=== PATIENT | female | born 1990 | race Caucasian/White ===

== ENCOUNTER 2022-04-08 09:18 | Emergency (ER) | payer MEDICAID ==
[~2022-04-08] VITALS: Ht 160 cm; Wt 79.0 kg
[2022-04-08] MEDS ORDERED: MORPHINE SULFATE 4 MG/ML CPJ (NOT FOR IM USE) IV STA (09:31)
[2022-04-08 10:32] LABS: BASOPHILS % 0.5 % (0.0-2.0); EOSINOPHILS % 2.1 % (0.0-5.0); HEMATOCRIT. 36.9 % (36.0-48.0); HEMOGLOBIN. 12.9 g/dL (12.0-16.0); MEAN CORPUSCULAR HEMOGLOBIN 32.2 pg (28.0-32.0); MEAN PLATELET VOLUME 8.5 fl (7.4-10.4); NEUTROPHILS % 64.4 % (40.0-76.0); PLATELET 377 x1000/uL (130-400); RED BLOOD CELL COUNT 4.01 mill/uL (4.2-5.4); RED CELL DISTRIBUTION WIDTH 13.5 % (11.6-14.6)
[2022-04-08 10:46] LABS: CHLORIDE 105 mEq/L (98-107)
[2022-04-08 10:48] LABS: HCG SCREEN NEGATIVE
[2022-04-08] MEDS ORDERED: LIDOCAINE HCL/PF 1% 10 MG/ML 5ML VIAL INFIL ONE (11:15)
[2022-04-08] MEDS ORDERED: T3 PO (11:58)
[2022-04-08] MEDS ORDERED: IBUP-2028 PO (11:58)
[2022-04-08 13:30] VITALS: BP 121/77
== END 2022-04-08 13:45 | disposition home or self-care (01) ==
LOC: ER 09:18
DX: S02.2XXB Fracture of nasal bones, initial encounter for open fracture (principal); S52.591A Other fractures of lower end of right radius, initial encounter for closed fracture; M54.2 Cervicalgia; M54.59 Other low back pain; M79.662 Pain in left lower leg; R10.9 Unspecified abdominal pain; V49.49XA Driver injured in collision with other motor vehicles in traffic accident, initial encounter; Y93.89 Activity, other specified; Y92.488 Other paved roadways as the place of occurrence of the external cause
CPT/HCPCS: 12011; 29105; 36415; 70450; 70486; 72125; 73110; 73590; 74176; 80053; 84703; 85025; 96374; 99285; J2270; J3490; Z7610; A4565

== ENCOUNTER 2022-04-15 15:09 | Emergency (ER) | payer MEDICAID ==
[~2022-04-15] VITALS: Ht 170.2 cm; Wt 73.0 kg
[~2022-04-15 15:09] MED LIST: IBUP-2028 PO; T3 PO
[2022-04-15 15:15] VITALS: BP 119/73
== END 2022-04-15 17:06 | disposition home or self-care (01) ==
LOC: ER 15:09
DX: Z48.02 Encounter for removal of sutures (principal)
CPT/HCPCS: 81025; 99282